=== PATIENT | female | born 1935 | race Caucasian/White ===

== ENCOUNTER 2021-06-12 20:21 | Inpatient (IN) ==
[2021-06-12] MEDS ORDERED: Lactated Ringers 1000 ml BAG 1,000 ML IV ONE ×2 (20:43→23:56)
[2021-06-12] MEDS ORDERED: Piperacillin/Tazobac ADVAN 3.375 GM in NS 0.9% 100 ml BAG 100 ML IVPB ONE (20:45)
[2021-06-12 21:02] LABS: ABS Monocytes 1.3 10^3/ul (0-0.8); ABS Neutrophils 6.4 10^3/ul (1.5-7.7); Eosinophil % 0.4 %; Hematocrit 40 % (35-47); Hemoglobin 13.4 g/dL (12.0-16.0); Lymphocyte % 11.8 %; Mean Corpuscular HGB Conc 33 g/dL (31-36); Mean Corpuscular Hemoglobin 33 pg (27-31); Mean Corpuscular Volume 98 fL (80-97); Mean Platelet Volume 7.1 fL (7.4-10.4); Nucleated Red Blood Cells % 0.1; Platelet Count 283 10^3/uL (150-450); Red Cell Distribution Width 15 % (10-15); White Blood Count 8.9 10^3/uL (3.5-10.8)
[2021-06-12 21:19] LABS: ALT 12 U/L (7-52); AST 19 U/L (13-39); Albumin/Globulin Ratio 0.9 (1-3); Alkaline Phosphatase 98 U/L (35-149); Anion Gap 7 mmol/L (2-11); Blood Urea Nitrogen 15 mg/dL (6-24); C Reactive Protein 208.39 mg/L (<8.01); CO2 Carbon Dioxide 35 mmol/L (22-32); Calcium 9.7 mg/dL (8.6-10.3); Chloride 98 mmol/L (101-111); Globulin 3.3 g/dL (2-4); Glucose 105 mg/dL (70-100); Magnesium 1.6 mg/dL (1.9-2.7); Potassium 3.4 mmol/L (3.5-5.0); Sodium 140 mmol/L (135-145); Total Protein 6.3 g/dL (6.4-8.9); eGFR CKD-EPI 75.5 (>60)
[2021-06-12] MEDS ORDERED: Magnesium Sulfate 2 gm BAG 2 GM/50 ML BAG IVPB ONE (21:24)
[2021-06-12 21:25] LABS: Troponin I 0.03 ng/mL (<0.03)
[2021-06-12 21:39] LABS: TSH Ultra Thyroid Stim Horm 7.01 mcIU/mL (0.34-5.60)
[2021-06-12 21:49] LABS: Rapid COVID-19 Molecular Undetected (Undetected)
[2021-06-12 21:58] LABS: Influenza A Molecular Negative (Negative); Influenza B Molecular Negative (Negative)
[2021-06-12] MEDS: KCL 20 MEQ/100 ML IVPREMIX 20 MEQ/100 ML BAG IV SCH (21:58)
[2021-06-12] MEDS ORDERED: Metoprolol Tartrate 5 mg VIAL 5 ml VIAL (1 mg/ml) IV ONE (22:55)
[2021-06-13 00:39] LABS: Urine Appearance Cloudy; Urine Bilirubin Negative (Negative); Urine Blood 3+ (Negative); Urine Color Yellow; Urine Glucose Negative (Negative); Urine Ketones Negative (Negative); Urine Nitrite Negative (Negative); Urine Protein 2+(100 mg/dL) (Negative); Urine Specific Gravity 1.018 (1.002-1.030); Urine Urobilinogen Negative (Negative)
[2021-06-13 00:48] LABS: Urine Bacteria 1+ (Absent); Urine Red Blood Cell 3+(>10/hpf) (Absent); Urine Squamous Epithelial Cell Present (Absent); Urine Transitional Epithelial Present (Absent); Urine White Blood Cell 3+(>20/hpf) (Absent); Urine Yeast Present (Absent)
[2021-06-13 00:54] LABS: Indirect Bilirubin 1.5 mg/dL (0.3-1.0)
[2021-06-13] MEDS: KCL 20 MEQ/100 ML IVPREMIX 20 MEQ/100 ML BAG IV SCH (01:26)
[2021-06-13 01:33] LABS: Troponin I 0.03 ng/mL (<0.03)
[2021-06-13] MEDS ORDERED: Lactated Ringers 500 ml BAG 500 ML IV ONE (01:41)
[2021-06-13] MEDS ORDERED: Metoprolol Tartrate 5 mg VIAL 5 ml VIAL (1 mg/ml) IV SCH ×2 (02:00→02:30)
[2021-06-13] MEDS ORDERED: Senna TAB 8.6 mg TAB PO PRN (02:24)
[2021-06-13] MEDS ORDERED: Lactated Ringers 1000 ml BAG 1,000 ML IV SCH ×2 (03:00→14:58)
[2021-06-13] MEDS: Metoprolol Tartrate 5 mg VIAL 5 ml VIAL (1 mg/ml) IV SCH ×4 (04:28→21:57)
[2021-06-13] MEDS: cefTRIAXone 1 gm/50 mL NS BAG 1 GM/50 ML BAG IVPB SCH (04:28)
[2021-06-13] MEDS ORDERED: ZINC OXIDE 12.8% (TOPICAL) 60 GM TUBE TOPICAL PRN (07:28)
[2021-06-13 07:46] LABS: Albumin 2.5 g/dL (3.2-5.2); Albumin/Globulin Ratio 0.9 (1-3); Calcium 8.9 mg/dL (8.6-10.3); Globulin 2.7 g/dL (2-4); Potassium 3.9 mmol/L (3.5-5.0); Total Bilirubin 1.9 mg/dL (0.2-1.0); Total Protein 5.2 g/dL (6.4-8.9); eGFR CKD-EPI 62.6 (>60)
[2021-06-13] MEDS ORDERED: KCL 10 MEQ/50 ML IVPREMIX 10 MEQ/50 ML BAG IV ONE (08:40)
[2021-06-13] MEDS ORDERED: SOLIFENACIN 10 MG PO SCH (09:00)
[2021-06-13 13:02] LABS: Folate 11.57 ng/mL (5.90-24.80)
[2021-06-13] MEDS ORDERED: Buprenorphine 2 mg SL TAB SL SCH (15:00)
[2021-06-13] MEDS: Buprenorphine 2 mg SL TAB SL SCH ×2 (16:03→20:13)
[2021-06-13] MEDS: Acetaminophen IV 1 GM/100ML 100 ML IV SCH ×2 (16:03→21:57)
[2021-06-13 16:36] LABS: Urine Appearance Clear; Urine Bilirubin Negative (Negative); Urine Blood 2+ (Negative); Urine Color Yellow; Urine Glucose Negative (Negative); Urine Ketones Negative (Negative); Urine Nitrite Negative (Negative); Urine Protein 1+(30 mg/dL) (Negative); Urine Specific Gravity 1.008 (1.002-1.030); Urine Urobilinogen Negative (Negative)
[2021-06-13 16:40] LABS: Urine Bacteria Absent (Absent); Urine Red Blood Cell 1+(3-5/hpf) (Absent); Urine White Blood Cell Trace(0-5/hpf) (Absent)
[2021-06-13] MEDS: Senna TAB 8.6 mg TAB PO SCH (20:13)
[2021-06-13 20:34] LABS: Urine Benzodiazepine Screen None Detected (None Detect); Urine Buprenorphine Screen None Detected (None Detect); Urine Cannabinoids Screen None Detected (None Detect); Urine Fentanyl Screen None Detected (None Detect); Urine Hydrocodone Screen None Detected (None Detect); Urine Opiates Screen None Detected (None Detect)
[2021-06-13] MEDS ORDERED: RAMELTEON 8 MG PO SCH (21:00)
[2021-06-13] MEDS ORDERED: Senna TAB 8.6 mg TAB PO SCH (21:00)
[2021-06-13] MEDS ORDERED: HYDROmorphone 1 MG/1 ML SYRINGE IV SLOW PU PRN (21:00)
[2021-06-13] MEDS: D5W 1/2 NS KCl 20 meq 1000 ml 1,000 ML IV SCH (21:57)
[2021-06-14] MEDS: cefTRIAXone 1 gm/50 mL NS BAG 1 GM/50 ML BAG IVPB SCH (04:45)
[2021-06-14] MEDS: Metoprolol Tartrate 5 mg VIAL 5 ml VIAL (1 mg/ml) IV SCH ×4 (04:45→21:13)
[2021-06-14 05:53] LABS: ABS Eosinophils 0.1 10^3/ul (0-0.6); ABS Lymphocytes 0.8 10^3/ul (1.0-4.8); ABS Monocytes 0.7 10^3/ul (0-0.8); ABS Neutrophils 4.1 10^3/ul (1.5-7.7); Eosinophil % 1.4 %; Hematocrit 34 % (35-47); Hemoglobin 11.3 g/dL (12.0-16.0); Lymphocyte % 13.5 %; Mean Corpuscular HGB Conc 33 g/dL (31-36); Mean Corpuscular Hemoglobin 33 pg (27-31); Mean Corpuscular Volume 100 fL (80-97); Mean Platelet Volume 7.3 fL (7.4-10.4); Nucleated Red Blood Cells % 0.1; Platelet Count 212 10^3/uL (150-450); Red Blood Count 3.42 10^6 /uL (3.70-4.87); Red Cell Distribution Width 15 % (10-15); White Blood Count 5.6 10^3/uL (3.5-10.8)
[2021-06-14 06:08] LABS: Magnesium 1.7 mg/dL (1.9-2.7); Phosphorus 3.7 mg/dL (2.5-5.0); Potassium 3.7 mmol/L (3.5-5.0)
[2021-06-14] MEDS ORDERED: Magnesium Sulfate IV 3 GM in NS 0.9% 100 ml BAG 100 ML IVPB ONE (07:34)
[2021-06-14] MEDS: D5W 1/2 NS KCl 20 meq 1000 ml 1,000 ML IV SCH ×2 (08:22→21:13)
[2021-06-14] MEDS: Acetaminophen IV 1 GM/100ML 100 ML IV SCH ×2 (08:23→16:39)
[2021-06-14] MEDS: Buprenorp/Nalox 4-1 MG FILM SL FILM SCH ×4 (08:28→16:40)
[2021-06-14] MEDS: Polyethylene Glycol 3350 17 GM PACKET PO SCH (08:44)
[2021-06-14] MEDS: Lactated Ringers 1000 ml BAG 1,000 ML IV ONE ×2 (09:45→10:02)
[2021-06-14] MEDS ORDERED: HYDROmorphone 0.5 MG/0.5 ML SYRINGE IV SLOW PU PRN (15:00)
[2021-06-14] MEDS ORDERED: HYDROmorphone 1 MG/1 ML SYRINGE IV SLOW PU PRN (15:00)
[2021-06-14] MEDS: HYDROmorphone 0.5 MG/0.5 ML SYRINGE IV PRN ×2 (17:36→21:20)
[2021-06-14] MEDS: Senna TAB 8.6 mg TAB PO SCH (20:55)
[2021-06-15] MEDS: Acetaminophen IV 1 GM/100ML 100 ML IV SCH ×2 (00:16→05:50)
[2021-06-15] MEDS: Metoprolol Tartrate 5 mg VIAL 5 ml VIAL (1 mg/ml) IV SCH ×4 (03:44→20:35)
[2021-06-15] MEDS: cefTRIAXone 1 gm/50 mL NS BAG 1 GM/50 ML BAG IVPB SCH (03:44)
[2021-06-15] MEDS: HYDROmorphone 0.5 MG/0.5 ML SYRINGE IV PRN ×4 (03:45→20:36)
[2021-06-15] MEDS: Levothyroxine 100 MCG/5 ML VIAL IV SCH (05:16)
[2021-06-15 06:31] LABS: C Reactive Protein 180.1 mg/L (<8.01); Calcium 9.2 mg/dL (8.6-10.3); Phosphorus 3.4 mg/dL (2.5-5.0); Potassium 4.3 mmol/L (3.5-5.0); eGFR CKD-EPI 81.9 (>60)
[2021-06-15] MEDS ORDERED: Cyanocobalamin INJ 1,000 MCG/ML VIAL 1 ML VIAL IM ONE (09:00)
[2021-06-15] MEDS: Polyethylene Glycol 3350 17 GM PACKET PO SCH (09:36)
[2021-06-15] MEDS: D5W 1/2 NS KCl 20 meq 1000 ml 1,000 ML IV SCH (13:37)
[2021-06-15] MEDS: Senna TAB 8.6 mg TAB PO SCH (20:30)
[2021-06-16] MEDS: Levothyroxine 100 MCG/5 ML VIAL IV SCH (04:59)
[2021-06-16] MEDS: Metoprolol Tartrate 5 mg VIAL 5 ml VIAL (1 mg/ml) IV SCH ×2 (05:00→10:38)
[2021-06-16] MEDS: D5W 1/2 NS KCl 20 meq 1000 ml 1,000 ML IV SCH (05:00)
[2021-06-16] MEDS: HYDROmorphone 0.5 MG/0.5 ML SYRINGE IV PRN (06:27)
[2021-06-16 08:02] VITALS: BP 103/79
[2021-06-16] MEDS: Acetaminophen IV 1 GM/100ML 100 ML IV SCH ×2 (09:20→18:35)
[2021-06-16] MEDS: Polyethylene Glycol 3350 17 GM PACKET PO SCH (09:31)
[2021-06-16] MEDS ORDERED: Atropine 1% (ORAL/SL) 15 ML BTL SL PRN (12:51)
[2021-06-16] MEDS ORDERED: Ondansetron 4 mg VIAL 2 MG/ML 2 ml VIAL IV PRN (12:51)
[2021-06-16] MEDS ORDERED: Lorazepam PYXIS KEY PRN (12:59)
[2021-06-16] MEDS: LORazepam 2 mg VIAL 1 ml IV PUSH PRN (13:06)
[2021-06-16] MEDS: Morphine 2 MG/ML SYRINGE IV PRN (13:06)
[2021-06-17] MEDS: Acetaminophen IV 1 GM/100ML 100 ML IV SCH ×3 (00:26→16:59)
[2021-06-17] MEDS: Morphine 2 MG/ML SYRINGE IV PRN ×3 (05:09→21:34)
[2021-06-17] MEDS: LORazepam 2 mg VIAL 1 ml IV PUSH PRN (08:05)
[2021-06-18] MEDS: Acetaminophen IV 1 GM/100ML 100 ML IV SCH (00:32)
[2021-06-18] MEDS: Morphine 2 MG/ML SYRINGE IV PRN (15:30)
[2021-06-19] MEDS: Morphine 2 MG/ML SYRINGE IV PRN (07:22)
[2021-06-19 11:18] LABS: Rapid COVID-19 Molecular Undetected (Undetected)
[2021-06-19] MEDS ORDERED: Morphine ORAL CONCENTRATE 5 MG/0.25 ML ORAL.SYRIN SL PRN (13:16)
== END 2021-06-19 16:20 | DRG 871 ==
LOC: ED 20:21 → SUATTDRO 23:56 → EDHOLD 23:56 → MEDTELE 06-13 01:00
PROVIDERS: ADMIT Student in an Organized Health Care Education/Training Program; ATTEND Internal Medicine